=== PATIENT | female | born 1975 ===

== ENCOUNTER 2017-05-31 12:03 | Emergency (ER) | payer OTHER ==
[2017-05-31 12:43] VITALS: BP 133/92; PULSE 78; RESP 16; TEMP 98.4; O2SAT 97
--- NOTE | 2017-05-31 12:51 | C.PDOC ---
History Of Present Illness 41 year old female presents to the ER with a complaint of pain to the right hand /arm and sometimes to the right side of the face for the past week. Patient reports she has been taking tylenol and naproxen. 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 She reports that sometimes, instead of pain, it is like a cold sensation. Denies weakness or numbness. She states she has had much milder but similar symptoms in her L arm. Time Seen by Provider: 05/31/17 12:31 Chief Complaint (Nursing): Upper Extremity Problem/Injury History Per: Patient History/Exam Limitations: no limitations Onset/Duration Of Symptoms: Days Current Symptoms Are (Timing): Still Present Exacerbating Factor(s): Nothing Recent travel outside of the [place]: No Past Medical History Reviewed: Historical Data, Nursing Documentation, Vital Signs Vital Signs: Last Vital Signs Temp 98.4 F 05/31/17 12:39 Pulse 78 05/31/17 12:39 Resp 16 05/31/17 12:39 BP 133/92 H 05/31/17 12:39 Pulse Ox 97 05/31/17 12:58 Family History: States: Unknown Family Hx - Social History Hx Alcohol Use: No Hx Substance Use: No Review Of Systems Except As Marked, All Systems Reviewed And Found Negative. Musculoskeletal: Positive for: Neck Pain, Arm Pain, Hand Pain Neurological: Negative for: Weakness, Numbness Physical Exam - Physical Exam Additional Physical Exam Comments: Constitutional: No acute distress. Head: Normocephalic. Atraumatic. Eyes: PERRL. ENT: Moist mucous membranes. Neck: Supple. Cardiovascular: Regular rate. Radial pulse 2+ bilaterally. Chest: No tenderness. Respiratory: Clear to auscultation bilaterally. GI: Soft. Nontender. Nondistended. Back: No CVA tenderness. Musculoskeletal: No tenderness or swelling of extremities. FROM of hands, wrists , elbows, shoulders. Skin: No rash. Neurologic: Alert, no focal deficit. Sensation to light touch intact bilaterally and motor 5/5 bilaterally. ED Course And Treatment O2 Sat by Pulse Oximetry: 97 Medical Decision Making Medical Decision Making: Symptoms consistent with cervical radiculoatphy. Continue NSAIDs, instructed to f/u with primary care. Disposition - Disposition Referrals: [facility] at [facility] [Outside] Disposition Time: 13:00 Condition: STABLE Prescriptions: Ibuprofen [Motrin] 1 tab PO Q6 #30 tab Instructions: Radiculopathy (DC) Forms: Workbooks (Yoruba) - Clinical Impression Clinical Impression: Radiculopathy - Scribe Statement The provider has reviewed the documentation as recorded by the Scribkasandra Juan All medical record entries made by the Scribe were at my direction and personally dictated by me. I have reviewed the chart and agree that the record accurately reflects my personal performance of the history, physical exam, medical decision making, and the department course for this patient. I have also personally directed, reviewed, and agree with the discharge instructions and disposition.
== END 2017-05-31 13:36 | disposition home or self-care (01) ==
LOC: MERGE 12:03 → C.ER 12:03
DX: M54.10 Radiculopathy, site unspecified (principal)